=== PATIENT | female | born 1950 | race Caucasian/White ===

== ENCOUNTER 2017-04-08 06:09 | Day surgery (SDC) | payer OTHER ==
[~2017-04-08] VITALS: Ht 165.1 cm; Wt 118.2 kg
[~2017-04-08 06:09] MED LIST: LORA0.5T PO; SOTA80TA PO; TRAM50TA PO
[2017-04-08 06:54] VITALS: BP 127/91; PULSE 75; RESP 20; TEMP 97.9; O2SAT 97
[2017-04-08] MEDS ORDERED: SOTA80TA PO (06:55)
[2017-04-08] MEDS ORDERED: LORA0.5T PO (06:55)
[2017-04-08] MEDS ORDERED: TRAM50TA PO (06:55)
[2017-04-08] MEDS ORDERED: VANCOMYCIN 1000 MG/NS 250 ML - implanted port/tunneled catheter IV SCH ×2 (07:15)
[2017-04-08] MEDS ORDERED: ceFAZolin 2 GM PREMIX 50 ML - implanted port/tunneled catheter insertion IV SCH (07:15)
[2017-04-08] MEDS ORDERED: SODIUM CHLORIDE 0.9% 1000 ML IV SCH (07:15)
[2017-04-08 07:37] LABS: INTERNATIONAL NORMALIZED RATIO 1.7 RATIO; PROTHROMBIN TIME - PATIENT 17.4 SEC (9.8-11.6)
[2017-04-08 08:48] LABS: INTERNATIONAL NORMALIZED RATIO 1.8 RATIO; PROTHROMBIN TIME - PATIENT 17.9 SEC (9.8-11.6)
[2017-04-08] MEDS ORDERED: fentaNYL CITRATE 250 MCG/5 ML AMP ONE (09:32)
[2017-04-08] MEDS ORDERED: MIDAZOLAM HCL 5 MG/5 ML VIAL ONE (09:32)
--- NOTE | 2017-04-08 10:30 | PD.RAD ---
Post Procedure Progress Note Pre Procedure Diagnosis: (1) Breast cancer Post Procedure Diagnosis: (1) Breast cancer Procedure Date: Apr 08, 2017 Supervising Radiologist: Levon Jackson Estimated blood loss: 3cc Anesthesia: Local, Conscious Sedation Plan of Activity Patient to Unit: ROPU Patient Condition: Good Additional Comments: Port placed via the right IJ Catheter in good position OK for use. Full dictated report to follow See PACS Report for procedural detail/treatment Levon Jackson MD Apr 08, 2017 10:30
[2017-04-08 10:44] VITALS: BP 133/77; PULSE 78; RESP 18; TEMP 98.3; O2SAT 97
[2017-04-08 11:14] VITALS: BP 132/74; PULSE 81; RESP 19; O2SAT 99
[2017-04-08 11:44] VITALS: BP 121/84; PULSE 79; RESP 17; O2SAT 97
[2017-04-08] MEDS ORDERED: SODIUM CHLORIDE 0.9% FLUSH 10 ML FLUSH IVF PRN (12:00)
[2017-04-08 12:44] VITALS: BP 131/70; PULSE 84; RESP 18; O2SAT 98
--- NOTE | 2017-04-08 12:55 | RADRPT ---
EXAM DATE/TIME: 04/08/2017 10:49 [facility] COMPARISON: No previous studies available for comparison. The INDICATIONS : Patient presents with breast cancer in need of port placement for chemotherapy treatment. MEDICAL HISTORY : Breast cancer Cirrhosis Diverticulitis SURGICAL HISTORY : EGD 2011 [place] Hysterectomy Knee replacement ENCOUNTER: Initial ACUITY: 1 month PAIN SCORE: 0/10 LOCATION: N/A FLUORO TIME: 30 minutes IMAGE SERIES: 1 SEDATION TIME: 0.4 minutes ACCESS: Right internal jugular vein SEDATION: 1.) 3.5 mg midazolam (Versed) IV 2.) 175 mcg fentanyl (Sublimaze) IV Prophylactic antibiotics were administered with appropriate pre-procedure timing. Vancomycin within 2 hours of procedure, Ancef (or alternative) within 1 hour of procedure. DEVICE: 1. 8 Tongan single lumen Smart port CT w/vortex PROCEDURE : 1. Continuous pulse oximetry and EKG monitoring. 2. Intravenous conscious sedation. 3. Ultrasound guidance for venous access. 4. Fluoroscopic guided implantable central venous port placement. The patient was placed supine. The neck was prepped in sterile fashion. Full sterile technique was u sed, including cap, mask, sterile gloves and gown, and a large sterile sheet. Hand hygiene and 2% ch lorhexidine Betadine was utilized per protocol for cutaneous antisepsis with appropriate dry time for site. Sterile gel and sterile probe cover were utilized for ultrasound guidance. The skin and sub cutaneous tissues were infiltrated with local anesthetic solution. Under direct ultrasound guidance, central venous access was accomplished in the targeted vessel. The ultrasound images depicting access guidance were stored and saved to PACS for permanent record. A s ubcutaneous pocket was created using blunt dissection. The port was introduced to the pocket. The c atheter tubing was fed through a subcutaneous tunnel to the venotomy site. The catheter tubing was c ut to a suitable length and then was introduced through a valved Peel-Away sheath and positioned with catheter tubing tip at the cavo-atrial junction level. The port was fixed to the chest wall with 2 V icryl sutures. The pocket incision was closed with subcuticular Vicryl suture. Steri-Strips were ap plied. The port was flushed and locked with heparin solution per protocol. Sterile dressing was fiordaliza lied to the site. The patient tolerated the procedure well. Conscious sedation was performed with the prescribed dosages and duration as above in the presence of an independent trained radiology nurse to assist in the monitoring of the patient. EKG and oximetry remained stable throughout the procedure. The patient tolerated the procedure well and there were no complications. The patient was sent to post anesthesia recovery in stable condition. CONCLUSION: Uncomplicated ultrasound and fluoroscopic guided implanted central venous port catheter placement as described in detail above. An 8 Tongan Power port was placed. Levon Jackson MD on April 08, 2017 at 12:51 Board Certified Radiologist. This report was verified electronically.
== END 2017-04-08 13:10 | disposition home or self-care (01) ==
LOC: HROP 06:09 → HRIP 06:10 → HROP 13:10
PROVIDERS: ATTEND Internal Medicine
DX: C50.919 Malignant neoplasm of unspecified site of unspecified female breast (principal); K74.60 Unspecified cirrhosis of liver; K57.92 Diverticulitis of intestine, part unspecified, without perforation or abscess without bleeding
CPT/HCPCS: 36561; 76937; 77001; 85610; 85730; 99152; 99153; C1788; J0690; J1642; J2250; J3010; J3370; J7030; J7050

== ENCOUNTER 2017-05-14 07:32 | Day surgery (SDC) | payer OTHER ==
--- NOTE | 2017-05-14 09:24 | RADRPT ---
EXAM DATE/TIME: 05/14/2017 08:20 [facility] COMPARISON: No previous studies available for comparison. [facility] [place] and 09/22/15, 12/15/15, 05/27/14, 06/11/12, 01/02/12 INDICATIONS : Ascites. MEDICAL HISTORY : Cirrhosis. Diverticulosis. Cervical and uterine cancer. SURGICAL HISTORY : Cholecystectomy. Hysterectomy. EGD. ENCOUNTER: Initial ACUITY: 1 day PAIN SCORE: 0/10 LOCATION: Four quadrant. AREA EVALUATED: Four quadrant. FINDINGS: Imaging of the abdomen and pelvis was performed to evaluate for ascites for possible paracentesis. O nly very minimal ascites is noted. This is inadequate for safe paracentesis. CONCLUSION: Very minimal ascites which is inadequate for safe paracentesis. Jakub Kelly MD on May 14, 2017 at 9:21 Board Certified Radiologist. This report was verified electronically.
== END 2017-05-14 08:30 | disposition home or self-care (01) ==
LOC: HRAD 07:32 → HRIP 07:33 → HRAD 08:30
PROVIDERS: ATTEND Internal Medicine Gastroenterology
DX: R18.8 Other ascites (principal)
CPT/HCPCS: 76705

== ENCOUNTER 2017-05-22 06:17 | Day surgery (SDC) | payer OTHER ==
[~2017-05-22] VITALS: Ht 165.1 cm; Wt 116.5 kg
[2017-05-22] VITALS (13 sets, daily range): BP systolic 103–156; BP diastolic 69–92; PULSE 74–88; RESP 17–20; TEMP 97.8–98.5; O2SAT 93–99
[2017-05-22] MEDS ORDERED: FURO80TA PO (06:58)
[2017-05-22] MEDS ORDERED: ceFAZolin 2 GM PREMIX 50 ML IV SCH (07:15)
[2017-05-22 07:23] LABS: INTERNATIONAL NORMALIZED RATIO 1.9 RATIO
[2017-05-22] MEDS ORDERED: diphenhydrAMINE HCL 50 MG/ML VIAL ONE (11:22)
[2017-05-22] MEDS ORDERED: MEPERIDINE HCL 50 MG/ML VIAL ONE (11:34)
[2017-05-22] MEDS ORDERED: MIDAZOLAM HCL 2 MG/2 ML VIAL ONE ×2 (12:31→13:07)
[2017-05-22] MEDS ORDERED: diphenhydrAMINE HCL 50 MG/ML VIAL IV ONE (13:45)
[2017-05-22] MEDS ORDERED: MEPERIDINE HCL 25 MG/ML VIAL IV ONE (13:45)
--- NOTE | 2017-05-22 14:19 | PD.RAD ---
Post Procedure Progress Note Pre Procedure Diagnosis: (1) Breast cancer Post Procedure Diagnosis: (1) Breast cancer Procedure Date: May 22, 2017 Supervising Radiologist: Al Mays Proceduralist/Assist: Kush Platt, RT(R), Eve Boss RT(R) Anesthesia: Local, Analgesia, Conscious Sedation Plan of Activity Patient to Unit: ROPU Patient Condition: Good See PACS Report for procedural detail/treatment Central Venous Access Device Procedure 1 Right Internal Jugular Infusaport Removal Al Mays MD May 22, 2017 14:19
--- NOTE | 2017-05-23 13:42 | RADRPT ---
EXAM DATE/TIME: 05/22/2017 00:00 [facility] COMPARISON: No previous studies available for comparison. INDICATIONS : Patient with history of breast cancer in need of port removal. MEDICAL HISTORY : Breast cancer Cirrhosis Diverticulitis Anemia Anxiety Arthritis Heart disease Osteoarthritis SURGICAL HISTORY : EGD 2011 Cholecystectomy Carpal tunnel surgery Hysterectomy Knee replacement Mastectomy Colonoscopy Breast biopsy ENCOUNTER: Subsequent ACUITY: 2 months PAIN SCORE: 0/10 LOCATION: N/A SEDATION TIME: 30 minutes 1.) 3 mg midazolam (Versed) IV 2.) 150 mcg fentanyl (Sublimaze) IV Prophylactic antibiotics were administered with appropriate pre-procedure timing. Vancomycin within 2 hrs of procedure, Ancef (or alternative) within 1 hr of procedure. PROCEDURE : 1. Removal of Kxunji-[id number]-[id number]. 2. Conscious sedation with continuous EKG and oximetry monitoring. The risk, benefits and potential complications of [id number]-f-[id number] removal were discussed. Written conse nt was obtained. The patient was placed supine. The chest wall was prepped in sterile fashion. Full sterile techniqu e was used, including cap, mask, sterile gloves and gown, and a large sterile sheet. Hand hygiene an d 2% chlorhexidine and/or Betadine/alcohol prep was utilized per protocol for cutaneous antisepsis. The skin and subcutaneous tissues were infiltrated with local anesthetic solution. A small incision w as made, the subcutaneous pocket was opened. The port was dissected from the subcutaneous tissues and easily removed in one piece. The pocket incision was closed with subcuticular Vicryl suture. Steri -Strips were applied. Conscious sedation was performed with the prescribed dosages and duration as above in the presence of an independent trained radiology nurse to assist in the monitoring of the patient. EKG and oximetry remained stable throughout the procedure. The patient tolerated the procedure well and there were no complications. The patient was sent to post anesthesia recovery in stable condition. CONCLUSION: Uncomplicated port removal as above. Al Mays MD on May 23, 2017 at 13:40 Board Certified Radiologist. This report was verified electronically.
== END 2017-05-22 16:10 | disposition home or self-care (01) ==
LOC: HROP 06:17 → HRIP 06:20 → HROP 16:10
PROVIDERS: ATTEND Internal Medicine
DX: Z45.2 Encounter for adjustment and management of vascular access device (principal); C50.911 Malignant neoplasm of unspecified site of right female breast
CPT/HCPCS: 36430; 36590; 81002; 85610; 85730; 86078; 86880; 86900; 86901; 86927; 99152; 99153; J0690; J1200; J2175; J2250; J3010; P9017

== ENCOUNTER 2017-09-04 08:58 | Emergency (ER) | payer OTHER ==
[~2017-09-04] VITALS: Ht 165.1 cm; Wt 110.0 kg
[~2017-09-04 08:58] MED LIST changes: +FURO80TA PO
[2017-09-04 09:05] VITALS: BP 146/71; PULSE 60; RESP 18; TEMP 97.7; O2SAT 97
[2017-09-04] MEDS ORDERED: POTA595T PO (09:18)
[2017-09-04] MEDS ORDERED: ALEN1TAB48 PO (09:18)
[2017-09-04] MEDS ORDERED: PROC10TA PO (09:18)
[2017-09-04] MEDS ORDERED: ZANT150T2 PO (09:18)
[2017-09-04] MEDS ORDERED: CALC1TAB87 PO (09:18)
[2017-09-04] MEDS ORDERED: ANAS1TAB PO (09:18)
[2017-09-04] MEDS ORDERED: SPIR50TA PO (09:18)
[2017-09-04] MEDS ORDERED: VITA500S3 SL (09:19)
[2017-09-04 09:24] VITALS: BP 122/71; PULSE 62; RESP 16; O2SAT 100
[2017-09-04] MEDS ORDERED: SODIUM CHLORIDE 0.9% FLUSH 10 ML FLUSH IV FLUSH PRN (10:30)
--- NOTE | 2017-09-04 10:40 | PD ---
HPI Chief Complaint: Altered Mental Status Time Seen by Provider: 10:21 Travel History International Travel<30 days: No Contact w/Intl Traveler<30days: No Traveled to known affect area: No History of Present Illness HPI The patient was seen and examined in the presence of the nurse. This patient complains of feeling confused. Duration 1 week. Severity is moderate. She has had things happen like she was having difficulty using her phone or the TV remote. Things that she typically would be able to handle fine. She has history of breast cancer and recently completed radiation treatment. She also has history of liver cirrhosis she says from fatty liver. She had times gets jaundiced. She denies having problems with pneumonia in the past. No fever or headache or head injury. Symptoms have no alleviating factors. No exacerbating factors. PFSH Past Medical History Arthritis: Yes Atrial Fibrillation: Yes Cancer: Yes (UTERINE AND CERVICAL, breast) Cardiovascular Problems: Yes (AFIB, VTACH) Cirrhosis: Yes Diabetes: No Diverticulitis: Yes Endocrine: No Gastrointestinal Disorders: Yes (DIVERTICULITIS, COLORECTAL POLYPS, CIRRHOSIS, RECTAL BLEEDING) Genitourinary: Yes (KIDNEY STONES) Hepatitis: No Hiatal Hernia: No Immune Disorder: No Medical other: Yes (fatty liver followed by a specialist) Musculoskeletal: Yes (ARTHRITIS) Neurologic: No Psychiatric: No Reproductive: Yes (UTERINE AND CERVICAL CANCER STAGE 3 ) Respiratory: No Thyroid Disease: No Influenza Vaccination: Yes ?: Not Past Surgical History Abdominal Surgery: No AICD: No Cardiac Surgery: No Cholecystectomy: Yes Ear Surgery: No Endocrine Surgery: Yes (CHOLY) Eye Surgery: No Genitourinary Surgery: No Gynecologic Surgery: Yes (masectomy) Hysterectomy: Yes Joint Replacement: Yes (BILATERAL KNEE) Oral Surgery: Yes (MULTIPLE TEETH EXTRACTED) Pacemaker: No Thoracic Surgery: No Other Surgery: Yes Social History Alcohol Use: No Tobacco Use: No Substance Use: No Allergies-Medications (Allergen,Severity, Reaction): Coded Allergies: Sulfa (Sulfonamide Antibiotics) (Verified Allergy, Intermediate, rash, ) Reported Meds & Prescriptions Reported Meds & Active Scripts Active Reported Vitamin B-12 (Cyanocobalamin) 500 Mcg Subl 500 Mcg SL DAILY Zantac (Ranitidine HCl) 150 Mg Tab 150 Mg PO DAILY Alendronate (Alendronate Sodium) 70 Mg Tab 70 Mg PO Q7D Calcium 600 with Vitamin D (Calcium Carbonate-Cholecalciferol) 600-400 mg-Unit Tab 1 Tab PO DAILY Potassium Gluconate 595 Mg (99 Mg) Tab 1 Tab PO DAILY Spironolactone 50 Mg Tab 50 Mg PO BIDPC Prochlorperazine Maleate 10 Mg Tab 10 Mg PO Q6H PRN Anastrozole 1 Mg Tab 1 Mg PO DAILY Furosemide 80 Mg Tab 40 Mg PO EVERY OTHER DAY Tramadol (Tramadol HCl) 50 Mg Tab 50 Mg PO Q4H PRN Sotalol (Sotalol HCl) 80 Mg Tab 80 Mg PO BID Lorazepam 0.5 Mg Tab 0.5 Mg PO HS PRN Review of Systems General / Constitutional: No: Fever Eyes: No: Visual changes HENT: No: Headaches Cardiovascular: Positive: Edema, No: Chest Pain or Discomfort Respiratory: No: Shortness of Breath Gastrointestinal: No: Abdominal Pain Genitourinary: No: Dysuria Musculoskeletal: Positive: Edema, No: Pain Skin: Positive Change in Pigmentation, No Rash Neurologic: Positive: Change in Mentation, No: Weakness Psychiatric: No: Depression Endocrine: No: Polydipsia Hematologic/Lymphatic: No: Easy Bruising Physical Exam Narrative GENERAL: Well-nourished, well-developed patient in no apparent distress. SKIN: Focused skin assessment reveals no rash and nodules. Skin is Warm and dry. HEAD: Atraumatic. Normocephalic. EYES: Pupils equal and round. Positive scleral icterus. No injection or drainage. ENT: No nasal bleeding or discharge. Mucous membranes pink and moist. There is a scabbed lesion directly below her left lower lip NECK: Trachea midline. No JVD. No meningeal signs CARDIOVASCULAR: Regular rate and rhythm. No murmur appreciated. RESPIRATORY: No accessory muscle use. Clear to auscultation. Breath sounds equal bilaterally. GASTROINTESTINAL: Abdomen soft, non-tender, nondistended. Hepatic and splenic margins not palpable. MUSCULOSKELETAL: No obvious deformities. No clubbing. No cyanosis. Symmetric pitting edema from the knees down . NEUROLOGICAL: Awake and alert. No obvious cranial nerve deficits. Motor grossly within normal limits. Normal speech. PSYCHIATRIC: Appropriate mood and affect; insight and judgment reduced . Data Data Last Documented VS Vital Signs Date Time Temp Pulse Resp B/P (MAP) Pulse Ox O2 Delivery O2 Flow Rate FiO2 09/04/17 12:49 09/04/17 10:45 14 98 Room Air 09/04/17 09:24 62 09/04/17 09:05 97.7 Orders Orders Ammonia (09/04/17 10:30) Complete Blood Count With Diff (09/04/17 10:30) Comprehensive Metabolic Panel (09/04/17 10:30) Thyroid Stimulating Hormone (09/04/17 10:30) Urinalysis - C+S If Indicated (09/04/17 10:30) Ct Brain W/O Iv Contrast(Rout) (09/04/17 10:30) Ecg Monitoring (09/04/17 10:30) Iv Access Insert/Monitor (09/04/17 10:30) Oximetry (09/04/17 10:30) Sodium Chloride 0.9% Flush (Ns Flush) (09/04/17 10:30) Drug Screen, Random Urine (09/04/17 10:30) Alcohol (Ethanol) (09/04/17 10:30) Labs Laboratory Tests Test 09/04/17 10:30 White Blood Count 5.4 TH/MM3 Red Blood Count 3.15 MIL/MM3 Hemoglobin 10.3 GM/DL Hematocrit 29.6 % Mean Corpuscular Volume 94.1 FL Mean Corpuscular Hemoglobin 32.6 PG Mean Corpuscular Hemoglobin Concent 34.6 % Red Cell Distribution Width 19.1 % Platelet Count 82 TH/MM3 Mean Platelet Volume 7.8 FL Neutrophils (%) (Auto) 64.8 % Lymphocytes (%) (Auto) 12.7 % Monocytes (%) (Auto) 21.5 % Eosinophils (%) (Auto) 0.0 % Basophils (%) (Auto) 1.0 % Neutrophils # (Auto) 3.5 TH/MM3 Lymphocytes # (Auto) 0.7 TH/MM3 Monocytes # (Auto) 1.2 TH/MM3 Eosinophils # (Auto) 0.0 TH/MM3 Basophils # (Auto) 0.1 TH/MM3 CBC Comment AUTO DIFF Differential Comment AUTO DIFF CONFIRMED Platelet Estimate LOW Platelet Morphology Comment NORMAL Ovalocytes 1+ Urine Color LIGHT-YELLOW Urine Turbidity CLEAR Urine pH 5.0 Urine Specific [place] 1.005 Urine Protein NEG mg/dL Urine Glucose (UA) NEG mg/dL Urine Ketones NEG mg/dL Urine Occult Blood NEG Urine Nitrite NEG Urine Bilirubin NEG Urine Urobilinogen LESS THAN 2.0 MG/DL Urine Leukocyte Esterase NEG Urine RBC LESS THAN 1 /hpf Urine WBC LESS THAN 1 /hpf Urine Squamous Epithelial Cells 1 /hpf Microscopic Urinalysis Comment CATH-CULT NOT IND Blood Urea Nitrogen 26 MG/DL Creatinine 1.89 MG/DL Random Glucose 94 MG/DL Total Protein 7.0 GM/DL Albumin 2.3 GM/DL Calcium Level 8.4 MG/DL Alkaline Phosphatase 142 U/L Aspartate Amino Transf (AST/SGOT) 40 U/L Alanine Aminotransferase (ALT/SGPT) 31 U/L Total Bilirubin 4.4 MG/DL Sodium Level 142 MEQ/L Potassium Level 4.1 MEQ/L Chloride Level 109 MEQ/L Carbon Dioxide Level 20.9 MEQ/L Anion Gap 12 MEQ/L Estimat Glomerular Filtration Rate 27 ML/MIN Ammonia 60 MCMOL/L Thyroid Stimulating Hormone 3rd Gen 1.600 uIU/ML Urine Opiates Screen NEG Urine Barbiturates Screen NEG Urine Amphetamines Screen NEG Urine Benzodiazepines Screen NEG Urine Cocaine Screen NEG Urine Cannabinoids Screen NEG Ethyl Alcohol Level LESS THAN 3 MG/DL MDM Medical Decision Making Medical Screen Exam Complete: Yes Emergency Medical Condition: Yes Medical Record Reviewed: Yes Differential Diagnosis Hepatic encephalopathy, electrolyte abnormality, intracranial metastasis Narrative Course I have reviewed the patient's electronic medical record. Reviewed her oncologist note from June 2017 IV placed and labs sent Brain CT is negative Ammonia is elevated at 60 Urinalysis is clean General lab studies are reviewed. She has minor anemia and minor thrombocytopenia Metabolic studies are reasonably normal The presentation of the patient along with lab findings are consistent with hepatic encephalopathy However I do not feel that this rises to a level of hospitalization. Her confusion is intermittent and minor. She is alert and conversant and does not seem that confused at this time. Patient states that her daughter is going to stay with her for a few days I have written her for some lactulose to start and we discussed potential side effects. She is familiar with lactulose Diagnosis Primary Impression: Acute hepatic encephalopathy Additional Impression: Liver cirrhosis Qualified Codes: K74.60 - Unspecified cirrhosis of liver Additional Instructions: The patient was advised to follow up with their GI physician and return if they worsen. Med/Other Pt SpecificInfo: Prescription(s) given Scripts Lactulose Liq (Lactulose Liq) 10 Gm/15 Ml Soln 30 ML PO Q8HR for 7 Days, ML 1 Refill Prov: Toñito Edwards MD 09/04/17 Disposition: 01 DISCHARGE HOME Condition: Stable Toñito Edwards MD September 04, 2017 10:40
[2017-09-04 10:45] VITALS: RESP 14; O2SAT 98
[2017-09-04 10:49] LABS: AUTOMATED NEUTROPHIL # 3.5 TH/MM3 (1.8-7.7); BASOPHIL # 0.1 TH/MM3 (0-0.2); HEMATOCRIT 29.6 % (35.0-46.0); HEMOGLOBIN 10.3 GM/DL (11.6-15.3); LYMPH % 12.7 % (9.0-44.0); LYMPHOCYTE # 0.7 TH/MM3 (1.0-4.8); MEAN CELL VOLUME 94.1 FL (80.0-100.0); MEAN CORPUSCULAR HEMOGLOBIN 32.6 PG (27.0-34.0); MEAN CORPUSCULAR HGB CONC 34.6 % (32.0-36.0); MEAN PLATELET VOLUME 7.8 FL (7.0-11.0); MONO % 21.5 % (0.0-8.0); MONOCYTE # 1.2 TH/MM3 (0-0.9); NEUT % 64.8 % (16.0-70.0); PLATELET COUNT 82 TH/MM3 (150-450); RED BLOOD COUNT 3.15 MIL/MM3 (4.00-5.30); RED CELL DISTRIBUTION WIDTH 19.1 % (11.6-17.2); WHITE BLOOD COUNT 5.4 TH/MM3 (4.0-11.0)
[2017-09-04 10:53] LABS: BILIRUBIN, URINE NEG (NEG); BLOOD, URINE NEG (NEG); GLUCOSE,URINE NEG (NEG); KETONE, URINE NEG (NEG); NITRITE,URINE NEG (NEG); SQUAMOUS EPITHELIAL CELL URINE 1 /hpf (0-5); URINE COLOR LIGHT-YELLOW (YELLW/STRAW); URINE LEUKOCYTE ESTERASE NEG (NEG)
[2017-09-04 11:03] LABS: ALBUMIN 2.3 GM/DL (3.4-5.0); AST (GOT) 40 U/L (15-37); BICARBONATE 20.9 MEQ/L (21.0-32.0); BLOOD UREA NITROGEN 26 MG/DL (7-18); CALCIUM 8.4 MG/DL (8.5-10.1); CHLORIDE 109 MEQ/L (98-107); CREATININE 1.89 MG/DL (0.50-1.00); GLOMERULAR FILTRATION RATE 27 ML/MIN (>89); GLUCOSE,RANDOM 94 MG/DL (74-106); SODIUM (NA) 142 MEQ/L (136-145)
[2017-09-04 11:04] LABS: ALT (GPT) 31 U/L (10-53)
--- NOTE | 2017-09-04 11:14 | RADRPT ---
EXAM DATE: 09/04/2017 11:08 AM EDT AGE/SEX: 67 years / Female INDICATIONS: Confusion, altered mental status. CLINICAL DATA: This is the patient's initial encounter. Patient reports that signs and symptoms have been present for 3 days and indicates a pain score of 0/10. MEDICAL/SURGICAL HISTORY: Carcinoma, breast. Carcinoma, uterine. Carcinoma, cervical. Atrial fib rillation. Cholecystectomy. Hysterectomy. RADIATION DOSE: 56.35 CTDI (mGy) COMPARISON: [facility], MR BRAIN W AND W/O CONTRAST, 08/19/2017. . TECHNIQUE: CT of the head without contrast. Using automated exposure control and adjustment of the mA and/or kV according to patient size, radiation dose was kept as low as reasonably achievable to ob tain optimal diagnostic quality images. FINDINGS: Cerebrum: The ventricles are normal for age with mild atrophy and chronic small vessel ischemic mir ge. No evidence of midline shift, mass lesion, hemorrhage or acute infarction. No extraaxial fluid c ollections are seen. Posterior Fossa: The cerebellum and brainstem are intact. The 4th ventricle is midline. The cerebe llopontine angle is unremarkable. Extracranial: The visualized portion of the orbits is intact. Skull: The calvaria is intact. No evidence of skull fracture. CONCLUSION: 1. Negative noncontrast CT Electronically signed by: Nghia Sykes MD 09/04/2017 11:12 AM EDT
[2017-09-04 11:15] LABS: ALKALINE PHOSPHATASE 142 U/L (45-117); TOTAL BILIRUBIN ADULT 4.4 MG/DL (0.2-1.0)
[2017-09-04 11:37] LABS: OVALOCYTES 1+ (NORMAL)
[2017-09-04] MEDS ORDERED: LACT10SO PO (13:17)
== END 2017-09-04 13:28 | disposition home or self-care (01) ==
LOC: NEPE 08:58
DX: K72.00 Acute and subacute hepatic failure without coma (principal); K74.60 Unspecified cirrhosis of liver; Z85.3 Personal history of malignant neoplasm of breast; Z79.899 Other long term (current) drug therapy
CPT/HCPCS: 70450; 80053; 80307; 81001; 82140; 84443; 85025